=== PATIENT | male | born 1960 | race Caucasian/White ===

== ENCOUNTER → 2016-07-29 | Outpatient (CLI) | payer OTHER ==
[2016-07-29 17:34] LABS: HEMOGLOBIN A1C 7.73 % (4.2-6.0)
== END ==
LOC: MOB LAB 16:14
DX: E11.9 Type 2 diabetes mellitus without complications (principal)
CPT/HCPCS: 36415; 83036

== ENCOUNTER → 2016-10-01 | Outpatient (CLI) | payer OTHER | LOC: MOB LAB 10:11 | PROVIDERS: ATTEND Physician Assistant | DX: N39.0 Urinary tract infection, site not specified (principal) | CPT/HCPCS: 87088; 87185; 87205 ==

== ENCOUNTER 2018-09-05 14:23 | Inpatient (IN) ==
[2018-09-05] MEDS ORDERED: Sodium Chloride 0.9% 1,000 ML PRIMARY IV ONE (14:39)
[2018-09-05] MEDS ORDERED: ASPIRIN 81 MG (BABY) CHEWABLE TABLET PO ONE (14:39)
--- NOTE | 2018-09-05 14:40 | EKG ---
[address] [address] Measurements Intervals [place] Rate: 71 P: 76 MN: 166 QRS: 189 QRSD: 112 T: 55 QT: 410 QTc: 432 Interpretive Statements SINUS RHYTHM INDETERMINATE AXIS MODERATE INTRAVENTRICULAR CONDUCTION DELAY ] Compared to ECG 01/18/2013 15:25:46 Indeterminate axis now present Intraventricular conduction delay now present Sinus bradycardia no longer present Electronically Signed On 09-06-18 10:17:02 MDT by Yared Conway [email or web address]
[2018-09-05 14:53] LABS: BASOPHILS # (AUTO) 0.05 10*3/UL; BASOPHILS % (AUTO) 0.7 % (0-1); EOSINOPHILS # (AUTO) 0.46 10*3/UL; EOSINOPHILS % (AUTO) 6.3 % (0-8); Hemoglobin [HGB] 15.5 g/dL (14.0-18.0); MEAN CORPUSCULAR HGB CONC 33.7 g/dL (33-37); MEAN PLATELET VOLUME 10.1 FL (7.4-12.2); MONOCYTES # (AUTO) 0.59 10*3/UL (0.3-0.8); NEUTROPHILS # (AUTO) 4.55 10*3/UL; NEUTROPHILS % (AUTO) 61.8 % (50-80); RED BLOOD COUNT 5.35 10^6/uL (4.70-6.10)
[2018-09-05 14:54] LABS: PLATELET MORPHOLOGY COMMENT NORMAL MORPHOLOGY (NORM); RBC MORPHOLOGY COMMENT NORMAL MORPHOLOGY (NORM); WBC MORPHOLOGY COMMENT NORMAL MORPHOLOGY (NORM)
[2018-09-05 15:00] LABS: BLOOD UREA NITROGEN 16 mg/dL (7-22); SERUM ALBUMIN 3.9 g/dL (3.5-4.8)
--- NOTE | 2018-09-05 15:43 | DI ---
AP CHEST X-RAY, 09/05/2018 2:39 PM : Clinical History: Chest pain. Previous Exam: 01/18/2013; 11/15/2013; and 09/02/2014. Soft Tissues: No acute soft tissue abnormality. Bones: Normal. Heart: Heart size is at the upper limits of normal. There is no CHF. Lungs: No infiltrates. Effusion(s): None. Mediastinum: There is pulmonary arterial hypertension and the pulmonary arteries have become progress ively larger over the serial exams. The pulmonary artery branches are becoming more tortuous and segm ented, and this is associated with chronic bronchitis. Nodules: No pulmonary nodules. Readin. No acute infiltrate or effusion. 2. Heart size is at the upper limits of normal without definite CHF. 3. Progressive worsening of pulmonary arterial hypertension over the serial exams. This patient may have underlying chronic bronchitis.
--- NOTE | 2018-09-05 18:02 | DI ---
CT ANGIOGRAM OF THE CHEST, 09/05/2018 4:23 PM : Clinical History: Chest pain. Elevated D-dimer test. Previous Exam: None at this facility. Technique: Scans from base of neck to lung bases with IV contrast. Bolus tracking protocol was used f or timing the injection. Non-MIPS and MIPS sagittal/coronal images generated. IV Contrast: 65 mL of Ultravist 370. Base of Neck: Normal. Nodes: Normal axillary, supraclavicular, mediastinal, and hilar lymph nodes. Heart: Normal. Calcifications are present at the origins of the right coronary artery and the left ma instem. Reflux of contrast occurs in the inferior vena cava indicating mild tricuspid insufficiency. Aorta: Normal thoracic aorta. No aneurysm or dissection. Pulmonary Arteries: There are pulmonary emboli present bilaterally with the largest clots involving t he right lower lobe branches. Clots are also visible in branches to the right middle lobe and right u pper lobe as well as the left upper lobe, lingula, and left lower lobe. There is pulmonary arterial h ypertension with retrograde filling of the azygos and hemiazygos veins indicating elevated right hear t pressures. Lungs: No infiltrates. No pulmonary infarcts. Effusion(s): None. Nodules: None. Bony Structures: Normal visualized portions of ribs, sternum, scapulae, clavicles, and shoulders. Nor mal visualized portions of thoracic spine. Limited Upper Abdomen: Normal adrenal glands and spleen. Normal limited views of liver and pancreas. READIN. Pulmonary embolization involving all lobes of both lungs but most prominently in the right lower lobe. There is pulmonary arterial hypertension. No infiltrates or effusions Indicate pulmonary infarc ts. 2. Mild tricuspid insufficiency. Reflux of contrast into the azygos and hemiazygos veins indicating elevated right heart pressures. 3. Coronary artery disease with calcifications at the origins of the left mainstem and right coronar y artery.
[2018-09-05] MEDS ORDERED: Apixaban 5 MG TABLET PO ONE (18:06)
--- NOTE | 2018-09-05 21:06 | PDOC ---
HPI - History of Present Illness History of Present Illness: This very nice 58-year-old gentleman with history of diabetes he states that about 3 weeks ago started having chest pain this was acute in nature like an elephant was sitting on his chest where he had to stop after well except felt better and continue on with his normal day he did not seek medical treatment at that time comes back to the ER today for the same, the symptoms he is stable now does not have any chest pain or pain on deep inspiration. 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 he has not traveled in planes or long car rides and he doesn't know of any family members that have blood clots Past Medical History Medical History: Diabetes Tobacco Use: Former Smoker In the Past 12 Months, Have Used or Abuse Any of the Following Substance: None Medication / Allergies Home Medications: Home Medications Medication Instructions Recorded Confirmed Ibuprofen [Advil] 200 mg PO Q6H PRN PRN 09/16/11 09/05/18 Blood Sugar Diagnostic [Freestyle 1 strip MC BID #50 strip 02/27/13 09/05/18 Lite Test Strips] Cetirizine HCl [Zyrtec] 10 mg PO DAILY 05/12/17 09/05/18 blood sugar diagnostic strips See Dose Instructions .ROUTE 11/16/17 04/06/18 .MEDSUPPLY #100 ea geriatric multivit with iron and 1 tab PO QDAY 12/13/17 09/05/18 minerals tablet fluticasone furoate 200 1 inh INH QDAY #60 ea 05/07/18 09/05/18 mcg-vilanterol 25 mcg/dose inhalation powder glipizide 10 mg tablet 10 mg PO BID #60 tab 06/06/18 09/05/18 metformin 1,000 mg tablet 1,000 mg PO BID #60 tab 06/25/18 09/05/18 albuterol sulfate HFA 90 1 puff INH Q4-6H PRN #8.5 g 07/13/18 09/05/18 mcg/actuation aerosol inhaler sitagliptin 50 mg tablet 50 mg PO QDAY #30 tab 07/19/18 09/05/18 Atorvastatin Calcium [Lipitor] 20 mg PO BEDTIME 09/05/18 09/05/18 Lisinopril 5 mg PO BEDTIME 09/05/18 09/05/18 Allergies/Adverse Reactions: Allergies Allergy/AdvReac Type Severity Reaction Status Date / Time almond Allergy Severe Anaphylaxis Verified 09/05/18 18:55 EGGS Allergy Severe DIFFICULTY Uncoded 09/05/18 18:55 SWALLOWING Review of Systems - Review of Systems All Systems: Reviewed & No Additional Complaints Except as Stated - Respiratory Respiratory: DENIES: Negative System Review, Cough, Sputum, Dyspnea At Rest, Dyspnea with Exertion, Pleuritic Pain, Hemoptysis, Wheezing, Other, See HPI - Cardiovascular Cardiovascular: REPORTS: Chest Pain - Gastrointestinal Gastrointestinal / Abdominal: DENIES: Negative System Review, Nausea, Vomiting, Diarrhea, Constipation, Abdominal Pain, Bloody Stool, Poor Appetite, Heartburn, Regurgitation, Bloating, Lactose Intolerance, Melena, Bright Red Blood per Rectum, Other, See HPI - Genitourinary Genitourinary: DENIES: Negative System Review, Pain, Burning, Hematuria, Incontinence, Urgency, Hesitant Stream, Decreased Stream, Nocutria, Discharge, Sexual Dysfunction, Other, See HPI Exam - Vitals Vital Signs: Vital Signs Temperature 95.6 F Temperature Source Temporal Artery Scan Pulse Rate [Bilateral Dorsalis 82 Pedis] Pulse Rate [Apical] 80 Pulse Rate [Pulse Oximeter 83 Right] Pulse Rate 47 Respiratory Rate 20 Blood Pressure [Right Arm] 149/94 Blood Pressure 126/84 Pulse Ox 99 Oxygen Flow Rate 2 Oxygen Delivery Method Nasal Cannula Height 6 ft Weight 240 lb 8 oz - General General Appearance: No Acute Distress, Cooperative - Head Head Exam: Normal Inspection, Normocephalic, Atraumatic - Eye Eye Exam: POSITIVE: Normal Appearance, PERRL, EOMI, No Scleral Icterus - Respiratory Respiratory Exam: POSITIVE: Clear to Auscultation - Bilaterally, Breathing Non Labored, Normal To Percussion, Normal to Percussion and Palpation - Cardiovascular Cardiovascular Exam: POSITIVE: RRR, No Murmur, No Clicks, No Gallops, No Rubs, PMI Non-Displaced - GI/Abdominal GI/Abdominal Exam: POSITIVE: Normal Bowel Sounds, Non Tender, Non Distended, Soft, No Masses, No Hepatomegaly, No Splenomegaly, No Organomegaly - Extremities Extremities Exam: POSITIVE: No Clubbing Present, No Edema Present, No Cyanosis Present Results - Labs CBC and BMP: 09/05/18 14:42 09/05/18 14:42 Assessment and Plan - Patient Problems (1) Pulmonary embolism Current Visit: Yes Status: Acute Comment: Multifocal PE in no lobes, pulmonary hypertension and some right heart strain his vitals are stable he does not have hypotension he does have elevated LFTs but no positive troponins. We will put him on a heparin drip hopefully we can get an echo on Monday repeat labs tomorrow including troponin depending on what these values show and how vitals are further determination and medical decision will be made I've explained everything in very specific details to the family and daughter and nurse and at the bedside he will need a hematology consult as an outpatient Code(s): I26.99 - Other pulmonary embolism without acute cor pulmonale (2) Diabetes Current Visit: No Status: Chronic Comment: Check sugars before meals and at bedtime continue by mouth meds Code(s): E11.9 - Type 2 diabetes mellitus without complications Qualifiers:
--- NOTE | 2018-09-06 01:08 | PDOC ---
Chest Pain HPI - General Chief Complaint: Chest Pain Stated Complaint: CHEST PAIN Date Seen by Provider: 09/05/18 Time Seen by Provider: 15:00 Source: Patient, Spouse Exam Limitations: POSITIVE: No limitations Treatment Prior to Arrival: REPORTS: None Nurse's Notes Reviewed & Considered: Yes - History of Present Illness Initial Comments: The patient is a 58-year-old male. He states that 2 days ago he began to develop some intermittent episodes of chest pain and pressure "like an elephant sitting on my chest". He states he's had similar episodes 2-3 weeks ago. He states his father had heart problems. The patient himself has no known cardiopulmonary problems. She of diabetes for which he takes metformin and glipizide. He is also on lisinopril. Onset of his pain yesterday was while he was working on a lawn sprinkler. He states his symptoms occur with activity and or relieved by rest. Upon presentation to the emergency room he states he feels "okay". His last episode of chest pain occurred about 20 minutes [employer] and states he's had about 6 episodes of chest pain today. No radiation of pain. Patient has not smoked since 1994. Body Location Affected: REPORTS: Chest Timing: REPORTS: Intermittent Duration: >24 hours Severity: Moderate Gone now, lasted (minutes):: 20 Intermittent Episodes Lasting (minutes): 20 Context: REPORTS: Activity Quality: REPORTS: Pressure Radiation: REPORTS: None Associated Symptoms: DENIES: Nausea, Vomiting, Diaphoresis, Shortness of Breath, Hurts to Breathe, Palpitations, Productive Cough (blood), Productive Cough (sputum), Weakness, Dizziness Modifying Factors: improves with: None Reported Similar Symptoms Previously: No Recently seen/treated/hospitalized: No Any Prior Injuries Related to Current Complaint?: No - Patient Home Medications Home Medications: Home Medications Ibuprofen [Advil] 200 mg PO Q6H PRN PRN 09/16/11 Blood Sugar Diagnostic [Freestyle Lite Test Strips] 1 strip MC BID #50 strip 02/27/13 Cetirizine HCl [Zyrtec] 10 mg PO DAILY 05/12/17 blood sugar diagnostic strips See Dose Instructions .ROUTE .MEDSUPPLY #100 ea 11/16/17 geriatric multivit with iron and minerals tablet 1 tab PO QDAY 12/13/17 fluticasone furoate 200 mcg-vilanterol 25 mcg/dose inhalation powder 1 inh INH QDAY #60 ea 05/07/18 glipizide 10 mg tablet 10 mg PO BID #60 tab 06/06/18 metformin 1,000 mg tablet 1,000 mg PO BID #60 tab 06/25/18 albuterol sulfate HFA 90 mcg/actuation aerosol inhaler 1 puff INH Q4-6H PRN #8.5 g 07/13/18 sitagliptin 50 mg tablet 50 mg PO QDAY #30 tab 07/19/18 Atorvastatin Calcium [Lipitor] 20 mg PO BEDTIME 09/05/18 Lisinopril 5 mg PO BEDTIME 09/05/18 - Patient Allergies Allergies/Adverse Reactions: Allergies Allergy/AdvReac Type Severity Reaction Status Date / Time almond Allergy Severe Anaphylaxis Verified 09/05/18 18:55 EGGS Allergy Severe DIFFICULTY Uncoded 09/05/18 18:55 SWALLOWING Past Medical History - heen HEENT History: Tinnitis, Other (please comment) Additional HEENT History: MULTIPLE TEETH MISSING Cardiovascular History: Hypertension, Hyperlipidemia Respiratory History: Asthma Gastrointestinal History: GERD Genitourinary History: Denies History Endocrine History: Type 2 Diabetes (diet), Type 2 Diabetes (oral) Additional Endocrine History: STATES " I DONT BELIEVE IT" Musculoskeletal History: Back Pain, Other (please comment) Additional Musculoskeletal History: COMPRESSION FRACTURE BACK Neurological History: Denies History Blood Disorders: Denies History Psychiatric History: Denies History Cancer History: Denies History In Past Year Been Physically Harmed or Verbally Threatened: No History of MDRO: No Tobacco Use: Former Smoker Alcohol Use: Rarely In the Past 12 Months, Have Used or Abuse Any Substance: None Previous Surgical History: Yes Type / Date of Surgery: LT KNEE SCOPE. LT FOOT X 5. CYST LEFT SCAPULA REMOVED. ORAL SURGERY Significant Family History: No pertinent family hx Past Medical History Reviewed: Reviewed - No Changes ROS - Limitations ROS Limitations: No Limitations Constitution: REPORTS: Denies Symptoms Cardiovascular: REPORTS: Chest Pain Respiratory: REPORTS: Denies Resp Symptoms Neurological: REPORTS: Denies Neuro Symptoms Gastrointestinal: REPORTS: Denies GI Symptoms Endocrine: REPORTS: Denies Symptoms Musculoskeletal: REPORTS: Denies MS Symptoms Genitourinary: REPORTS: Denies Symptoms Eyes: REPORTS: Denies Symptoms ENT: REPORTS: Denies Symptoms Skin: REPORTS: Denies Skin Symptoms Lympathic: REPORTS: Denies Lympathic Symptoms Immunologic: POSITIVE: Denies Symptoms Psychiatric: POSITIVE: Denies Psych Symptoms Chest Pain PE - General Appearance General Appearance: REPORTS: Alert, Cooperative, No Acute Distress, No Evidence of Trauma - HEENT HEENT: POSITIVE: Head Inspection Nml, Eyes Inspection Nml, Ears Inspection Nml, Nose Inspection Nml, Oral/Dental Inspect. Nml, Pharynx Inspect. Nml, PERRL, EOMI - Neck Neck: REPORTS: Normal Inspection, No Carotid Bruit - Respiratory Respiratory: REPORTS: No Respiratory Distress, Breath Sounds Normal, Chest Non- Tender - Cardiovascular Cardiovascular: REPORTS: Regular Rate and Rhythm, Heart Sounds Normal, Equal Pulses, Strong Pulses, No Murmur, No Gallop, No Friction Rub, No JVD Peripheral Pulses: Radial (R): 2+, Radial (L): 2+ - Abdomen Abdomen: Soft: (All Quadrants), Normal Bowel Sounds: (All Quadrants), Denies Tenderness: (All Quadrants), No Splenomegaly: (All Quadrants), No Hepatomegaly: (All Quadrants), No Guarding: (All Quadrants), No Rebound: (All Quadrants), No Palpable Pulse: (All Quadrants), No Palpabale Mass: (All Quadrants), No Distention: (All Quadrants), No Rigidity: (All Quadrants) - Skin Skin: REPORTS: Intact, Normal For Race, Warm, Dry, No Rash - Extremities Extremity: Non-Tender: (All Extremities), Normal ROM: (All Extremities), Normal Inspection: (All Extremities) - Neurological / Psychological Neurological: POSITIVE: Affect Apporpriate, Oriented X3, parquetry layer Normal As Tested, Motor Normal, Sensation Normal Images - Complete Complete: 1 - Area of described discomfort Chest Pain Progress - Results Reviewed by me Xrays/CTs/US Reviewed by me: Yes Discussed with Radiologist: Yes Radiology Findings: CTA chest shows "pulmonary embolization involving all lobes of both lungs but most prominently in the right lower lobe. There is pulmonary arterial hypertension. No infiltrates or effusions" chest x-ray compatible with pulmonary hypertension. Lab Results Reviewed by Me: Yes (d-dimer [id number]) CBC and BMP: 09/05/18 14:42 09/05/18 14:42 Lab Results:: Laboratory Results 09/05/18 09/05/18 09/05/18 14:42 14:42 14:42 WBC 7.36 RBC 5.35 Hgb 15.5 Hct 46.0 MCV 86.0 MCH 29.0 MCHC 33.7 RDW Std Deviation 44.7 RDW Coeff of Deacon 14.7 H Plt Count 143 MPV 10.1 Immature Gran % (Auto) 0.1 Neut % (Auto) 61.8 Lymph % (Auto) 23.1 [place] % (Auto) 8.0 Eos % (Auto) 6.3 Baso % (Auto) 0.7 Immature Gran # (Auto) 0.01 Neut # (Auto) 4.55 Lymph # (Auto) 1.70 [place] # (Auto) 0.59 Eos # (Auto) 0.46 Baso # (Auto) 0.05 WBC Morphology Comment Normal morphology Plt Morphology Comment Normal morphology RBC Morph Comment Normal morphology PT INR APTT D-Dimer 6362 H Sodium 141 Potassium 4.7 Chloride 103 Carbon Dioxide 27 Anion Gap 11 BUN 16 Creatinine 0.8 Estimated GFR > 60 BUN/Creatinine Ratio 20.00 Glucose 203 H Calculated Osmolality 298.0 H Calcium 9.4 Total Bilirubin 0.5 AST 169 H ALT 259 H Alkaline Phosphatase 85 CK-MB (CK-2) Troponin I Total Protein 6.6 Albumin 3.9 Globulin 2.7 Albumin/Globulin Ratio 1.40 09/05/18 09/05/18 14:42 18:03 WBC RBC Hgb Hct MCV MCH MCHC RDW Std Deviation RDW Coeff of Deacon Plt Count MPV Immature Gran % (Auto) Neut % (Auto) Lymph % (Auto) [place] % (Auto) Eos % (Auto) Baso % (Auto) Immature Gran # (Auto) Neut # (Auto) Lymph # (Auto) [place] # (Auto) Eos # (Auto) Baso # (Auto) WBC Morphology Comment Plt Morphology Comment RBC Morph Comment PT 12.2 INR 1.06 APTT 30.8 D-Dimer Sodium Potassium Chloride Carbon Dioxide Anion Gap BUN Creatinine Estimated GFR BUN/Creatinine Ratio Glucose Calculated Osmolality Calcium Total Bilirubin AST ALT Alkaline Phosphatase CK-MB (CK-2) 1.28 Troponin I 0.020 Total Protein Albumin Globulin Albumin/Globulin Ratio EKG Interpreted/Reviewed By Me:: Yes (normal) EKG Interpretation:: POSITIVE: Normal Sinus Rhythm, Normal Rate, Normal Intervals, Normal [place], Normal QRS, Normal ST/T - Patient's Progress Pain Medication Addressed: POSITIVE: Not Applicable School/Work Release Addressed: POSITIVE: Not Applicable Re-Examine Time: 18:05 Re-Examine Comment: Patient maintained normal oxygen saturations in the emergency room. Patient given 10 mg of Eliquis by mouth. Case discussed with Dr. Llanos, hospitalist, who has admitted the patient for further evaluation and treatment. Status: POSITIVE: Improved, Re-Examined Quality Measure Initiative: CP/AMI: POSITIVE: EKG, ASA - Consult Consult (If Yes, Name of Consulting MD & Time Called): Yes (Dr. Llanos, hospitalist [id number],) Consulting MD will see pt:: POSITIVE[place] [facility] [place] Counseled: POSITIVE: Patient, Family, RE: Lab Results, RE: Radiology Results, RE: DX, RE: Need for F/U Patient Care Time - Estimated PCT Patient Care Time (In Minutes): 60 Vital Signs - Recent Vital Signs Vital Signs: Blood pressure 149/94, heart rate 83, respiratory rate 22, temperature 90.5F, oxygen saturation on room air 89%. - VS Reviewed Vital Signs Reviewed: Yes Discharge Clinical Impression: Chest pain, Pulmonary emboli Discharge Disposition: Admit to Inpatient Condition: Fair Patient Problem(s) Reviewed: Yes Date Decision to Admit to Inpatient: 09/05/18 Time Decision to Admit to Inpatient: 18:05
[2018-09-06 04:52] LABS: BASOPHILS # (AUTO) 0.03 10*3/UL; BASOPHILS % (AUTO) 0.5 % (0-1); EOSINOPHILS # (AUTO) 0.54 10*3/UL; EOSINOPHILS % (AUTO) 8.2 % (0-8); Hematocrit [HCT] 42.7 % (42.0-52.0); Hemoglobin [HGB] 13.7 g/dL (14.0-18.0); LYMPHOCYTES # (AUTO) 2.12 10*3/uL; MEAN CORPUSCULAR HGB CONC 32.1 g/dL (33-37); MEAN CORPUSCULAR VOLUME 87.1 FL (80-90); MEAN PLATELET VOLUME 10.8 FL (7.4-12.2); MONOCYTES # (AUTO) 0.55 10*3/UL (0.3-0.8); MONOCYTES % (AUTO) 8.4 % (5-15); NEUTROPHILS # (AUTO) 3.32 10*3/UL; NEUTROPHILS % (AUTO) 50.4 % (50-80)
[2018-09-06 05:00] LABS: PLATELET MORPHOLOGY COMMENT NORMAL MORPHOLOGY (NORM); RBC MORPHOLOGY COMMENT NORMAL MORPHOLOGY (NORM); WBC MORPHOLOGY COMMENT NORMAL MORPHOLOGY (NORM)
[2018-09-06 05:09] LABS: BLOOD UREA NITROGEN 20 mg/dL (7-22); SERUM ALBUMIN 3.2 g/dL (3.5-4.8)
[2018-09-06] MEDS ORDERED: Sodium Chloride 0.9% 1,000 ML PRIMARY IV ONE (06:44)
[2018-09-06] MEDS: Heparin Drip 25,000 UNIT/500 ML BAG IV SCH (06:54)
[2018-09-06] MEDS ORDERED: metFORMIN 500 MG TABLET PO SCH (07:00)
[2018-09-06] MEDS: GlipiZIDE Tab 5 MG TABLET PO SCH ×2 (07:25→16:39)
[2018-09-06] MEDS ORDERED: sitaGLIPtin Tab 100 MG TAB PO SCH (09:00)
[2018-09-06] MEDS: FLUTICASONE INH SCH (09:28)
[2018-09-06] MEDS: VILANTEROL INH SCH (09:28)
--- NOTE | 2018-09-06 13:25 | DI ---
VENOUS DOPPLER ULTRASOUND OF BOTH LOWER EXTREMITIES, 09/06/2018 7:00 AM: Clinical History: Multifocal pulmonary embolism. Previous Exam: None. Technique: 2D real-time imaging and color Doppler ultrasound with compression and augmentation maneuv ers. Deep Venous System: Scans of the right leg from the groin to Tin's canal are normal. Clot is prese nt the popliteal vein and the posterior tibial veins. Normal deep venous system from groin to poplite al fossa in the left leg. Superficial Venous System: Normal greater saphenous vein bilaterally. Additional Findings: Edema is present in the subcutaneous fat of the right lower leg. Readin. Deep vein thrombosis involving the right popliteal vein. Clot is also present in branches of the right posterior tibial veins. 2. Negative venous Doppler ultrasound of the left lower extremity.
--- NOTE | 2018-09-06 16:14 | PDOC(PROG) ---
Date of Service: 09/06/18 Time of Service: 12:00 Interval History: Subjective Patient came into the hospital because of history of chest pain, the chest pain been going on for about 3 weeks exertional, he described as pressure there was no radiation elsewhere, with shortness of breath. He Said sometimes he is been wearing his oxygen. He is denying symptoms today. Although he said he didn't walk much apart from going to the bathroom , he didn't feel short of breath and had no pain and no dizziness. Objective : Data - Labs CBC and BMP: 09/06/18 03:55 09/06/18 03:55 Objective : Exam - General General Appearance: No Acute Distress, Cooperative, Obese - Head Head Exam: Normal Inspection - Eye Eye Exam: Normal Appearance - ENT ENT Exam: Normal Exam - Neck Neck Exam: Normal Inspection - Respiratory Respiratory Exam: Clear to Auscultation - Bilaterally - Cardiovascular Cardiovascular Exam: RRR - GI/Abdominal GI/Abdominal Exam: Normal Bowel Sounds, Non Tender, Non Distended, Soft, No Org anomegaly - Rectal Rectal Exam: Deferred - External Exam: Deferred - Extremities Extremities Exam: Normal Inspection - Back Back Exam: Normal Inspection - Neurological Neurological Exam: Alert, Oriented x 3, CN II-XII Intact, No Facial Droop, Speech Intact / Clear, Moves All Extremities Equally - Psychiatric Psychiatric Exam: Normal Affect - Integumentary Integumentary Exam: Normal Color Assessment and Plan - Patient Problems (1) Pulmonary embolism Current Visit: Yes Status: Acute Comment: He was started on heparin for his PE. Ultrasound did show DVT. I did check his BNP was elevated. I did speak with library circulation assistant at the [facility] Dr. Castle and he agreed with the current management. Treatment is anticoagulation. He Doesn't think that is a need for IVC filter or other intervention or thrombolytic. Even echocardiogram can be done as an outpatient. I think will give him 24 hours of heparin and switch probably tomorrow to eliquis Code(s): I26.99 - Other pulmonary embolism without acute cor pulmonale (2) Diabetes Current Visit: No Status: Chronic Comment: Same medication but will hold the metformin. Code(s): E11.9 - Type 2 diabetes mellitus without complications Qualifiers:
[2018-09-06] MEDS: sitaGLIPtin Tab 100 MG TAB PO SCH (20:31)
[2018-09-06] MEDS: ATORVASTATIN 20 MG TABLET PO SCH (20:31)
[2018-09-06] MEDS ORDERED: LISINOPRIL 5 MG TABLET PO SCH (21:00)
[2018-09-06] MEDS ORDERED: ACETAMINOPHEN 325 MG TABLET PO PRN (21:05)
[2018-09-07] MEDS: Heparin Drip 25,000 UNIT/500 ML BAG IV SCH ×2 (00:36→21:47)
[2018-09-07 04:54] LABS: BASOPHILS # (AUTO) 0.03 10*3/UL; BASOPHILS % (AUTO) 0.4 % (0-1); EOSINOPHILS # (AUTO) 0.49 10*3/UL; Hematocrit [HCT] 42.6 % (42.0-52.0); Hemoglobin [HGB] 13.7 g/dL (14.0-18.0); LYMPHOCYTES # (AUTO) 1.75 10*3/uL; MEAN CORPUSCULAR HEMOGLOBIN 28.1 PG (27-31); MEAN CORPUSCULAR HGB CONC 32.2 g/dL (33-37); MEAN CORPUSCULAR VOLUME 87.3 FL (80-90); MEAN PLATELET VOLUME 10.4 FL (7.4-12.2); MONOCYTES # (AUTO) 0.44 10*3/UL (0.3-0.8); MONOCYTES % (AUTO) 6.3 % (5-15); NEUTROPHILS # (AUTO) 4.32 10*3/UL; NEUTROPHILS % (AUTO) 61.3 % (50-80); RED BLOOD COUNT 4.88 10^6/uL (4.70-6.10)
[2018-09-07 05:11] LABS: PLATELET MORPHOLOGY COMMENT NORMAL MORPHOLOGY (NORM); RBC MORPHOLOGY COMMENT NORMAL MORPHOLOGY (NORM); WBC MORPHOLOGY COMMENT NORMAL MORPHOLOGY (NORM)
[2018-09-07 05:20] LABS: BLOOD UREA NITROGEN 13 mg/dL (7-22); BUN/CREATININE RATIO 18.57 (6-20); SERUM ALBUMIN 3.4 g/dL (3.5-4.8)
[2018-09-07] MEDS ORDERED: Sodium Chloride 0.9% 1,000 ML PRIMARY IV SCH (07:30)
[2018-09-07] MEDS ORDERED: Sodium Chloride 0.9% 1,000 ML PRIMARY IV ONE (07:30)
[2018-09-07] MEDS: GlipiZIDE Tab 5 MG TABLET PO SCH ×2 (07:33→16:48)
[2018-09-07] MEDS: FLUTICASONE INH SCH (11:06)
[2018-09-07] MEDS: VILANTEROL INH SCH (11:06)
--- NOTE | 2018-09-07 11:50 | PDOC(PROG) ---
Date of Service: 09/07/18 Time of Service: 10:45 Interval History: Subjective Patient denying symptoms was laying in bed. However he did say that his symptoms are more exertional and on going to the bathroom he doesn't have any pain or shortness of breath. He did say though it's usually on longer distance walking he would feel symptoms. Objective : Data - Labs CBC and BMP: 09/07/18 04:05 09/07/18 04:05 Objective : Exam - General General Appearance: No Acute Distress, Cooperative - Head Head Exam: Normal Inspection - Eye Eye Exam: Normal Appearance - ENT ENT Exam: Normal Exam - Neck Neck Exam: Normal Inspection - Respiratory Respiratory Exam: Clear to Auscultation - Bilaterally - Cardiovascular Cardiovascular Exam: RRR - GI/Abdominal GI/Abdominal Exam: Normal Bowel Sounds, Non Tender, Non Distended, Soft, No Organomegaly - Rectal Rectal Exam: Deferred - External Exam: Deferred - Extremities Additional Extremities Exam Details: Mild swelling in the right leg compared to the left. Minimal edema present. - Back Back Exam: Normal Inspection - Neurological Neurological Exam: Alert, Oriented x 3, CN II-XII Intact - Psychiatric Psychiatric Exam: Normal Affect - Integumentary Integumentary Exam: Normal Color Assessment and Plan - Patient Problems (1) Pulmonary embolism Current Visit: Yes Status: Acute Comment: Continue IV heparin I think for another day and think about switching him to pills tomorrow. An echocardiogram is scheduled for today. As I said in my note yesterday I did speak with the fusing machine feeder at [facility] and he agrees with the current plan. No need for intervention or thrombolytics. No need for IVC filter. He did say though that he need to have the repeat echocardiogram in 3 months to look at his pressure again. Code(s): I26.99 - Other pulmonary embolism without acute cor pulmonale (2) Diabetes Current Visit: No Status: Chronic Comment: Same medication, I think we can restart his metformin tomorrow. Code(s): E11.9 - Type 2 diabetes mellitus without complications Qualifiers:
[2018-09-07] MEDS: sitaGLIPtin Tab 100 MG TAB PO SCH (21:11)
[2018-09-07] MEDS: ATORVASTATIN 20 MG TABLET PO SCH (21:11)
[2018-09-08] MEDS ORDERED: Sodium Chloride 0.9% 1,000 ML PRIMARY IV ONE (07:19)
[2018-09-08] MEDS: GlipiZIDE Tab 5 MG TABLET PO SCH ×2 (07:21→16:36)
--- NOTE | 2018-09-08 09:27 | PDOC(PROG) ---
Date of Service: 09/08/18 Time of Service: 09:30 Interval History: Subjective Patient is denying symptoms. He did walk around 3 laps around the nurses station he said he didn't have the chest pain that brought him here. No significant shortness of breath with it. Objective : Data - Labs CBC and BMP: 09/07/18 04:05 09/07/18 04:05 Objective : Exam - General General Appearance: No Acute Distress, Cooperative, Obese - Head Head Exam: Normal Inspection - Eye Eye Exam: Normal Appearance - ENT ENT Exam: Normal Exam - Neck Neck Exam: Normal Inspection - Respiratory Respiratory Exam: Clear to Auscultation - Bilaterally - Cardiovascular Cardiovascular Exam: RRR - GI/Abdominal GI/Abdominal Exam: Normal Bowel Sounds, Non Tender, Non Distended, Soft, No Organomegaly - Rectal Rectal Exam: Deferred - External Exam: Deferred - Extremities Additional Extremities Exam Details: Slight edema in the right leg. - Back Back Exam: Normal Inspection - Neurological Neurological Exam: Alert, Oriented x 3, CN II-XII Intact, No Facial Droop, Speech Intact / Clear, Moves All Extremities Equally - Psychiatric Psychiatric Exam: Normal Affect - Integumentary Integumentary Exam: Normal Color Assessment and Plan - Patient Problems (1) Pulmonary embolism Current Visit: Yes Status: Acute Comment: He did walk around did do well with no symptoms. I think will switch from heparin to eliquis will keep him another night in the hospital if things remain stable consider home tomorrow. Code(s): I26.99 - Other pulmonary embolism without acute cor pulmonale (2) Diabetes Current Visit: No Status: Chronic Comment: Same medication Code(s): E11.9 - Type 2 diabetes mellitus without complications Qualifiers: (3) DVT (deep venous thrombosis) Current Visit: Yes Status: Acute Comment: He is on anticoagulation. And I did speak with the case worker to at [facility] does not think that there is an indication for an IVC filter. Code(s): I82.409 - Acute embolism and thrombosis of unspecified deep veins of unspecified lower extremity
[2018-09-08] MEDS: metFORMIN ER 500 MG TABLET PO SCH ×2 (09:45→17:30)
[2018-09-08] MEDS: FLUTICASONE INH SCH (10:54)
[2018-09-08] MEDS: VILANTEROL INH SCH (10:54)
[2018-09-08] MEDS: Apixaban 5 MG TABLET PO SCH ×2 (10:55→20:26)
[2018-09-08] MEDS: ATORVASTATIN 20 MG TABLET PO SCH (20:25)
[2018-09-08] MEDS: sitaGLIPtin Tab 100 MG TAB PO SCH (20:25)
[2018-09-09 05:22] VITALS: RESP 16
[2018-09-09] MEDS: metFORMIN ER 500 MG TABLET PO SCH (07:09)
[2018-09-09] MEDS: GlipiZIDE Tab 5 MG TABLET PO SCH (07:09)
[2018-09-09 07:41] VITALS: BP 129/58; TEMP 97.9
--- NOTE | 2018-09-09 08:45 | DCSUMMARY ---
Hospitalization Summary Admit Date: 09/05/2018 Discharge Date: 09/09/18 Hospital Course: Discharge diagnoses 1. Bilateral pulmonary embolism involving all lobes of both lungs but most prominently in the right lower lobe 2. Deep vein thrombosis involving the right popliteal vein. Clot is also present in branches of the right posterior tibial veins. 3. Severe pulmonary hypertension likely secondary to the embolism, will need repeat echocardiogram in 3 months 4. 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 History of diabetes 6. History of asthma 7. Coronary artery disease with calcifications at the origins of the left mainstem and right coronary artery will need follow-up. Hospital course This is a 58 years old male with medical history significant for history of diabetes, asthma who presented to the hospital with history of chest pain exertional which is being going on for about 3 weeks, he came into the ER on the fifth with the same symptoms evaluation revealed elevated d-dimer, CTA of the chest showed bilateral pulmonary embolism involving all lobes of both lungs but most prominently in the right lower lobe so he was admitted to the hospital. In the ER initially he received eliquis then it was switched to IV heparin. He was admitted to the hospital by Dr. Llanos please see his note. I saw him the next day we continued with the same treatment on IV heparin, he had an ultrasound of his leg which showed DVT involving the right popliteal vein and also a clot present in branches of the right posterior tibial vein. He needed to be on oxygen about 2-3 L. He was never hypotensive he was not tachycardiac. I did speak with the fresh meat grader at [facility] just because of the clot burden and the presence of the DVT there is no role of thrombolytics, there is no role for IVC filter. We kept him on the IV heparin then switched him to eliquis. He did have an echocardiogram done I spoke with the medicine technologist and the unofficial report it did show severe pulmonary hypertension, right ventricle is dilated and systolic function is reduced of the right ventricle. I did speak with the fresh meat grader again Sherman Fernandez at [facility], and his opinion this is a expected and he recommended repeat echocardiogram in 3 months. On the day of discharge he did walk around did not have symptoms vital signs remained stable. He did though need to be on oxygen 2-3 L we thought he could be discharged home follow-up with his primary. We did do a blood test for prothrombin gene and actor [place] mutation and they're unavailable at the time of dictation. In terms of follow-up the patient said that he'll follow-up with his primary then decide whom he will follow-up after that in terms of specialists. CT of the chest did show calcification at the origin of the left mainstem coronary artery this need to be followed up later on as an outpatient. In terms of duration of treatment he may need to be on lifelong treatment because of the clot burden. We could not do further testing in terms of thrombophilia profile because he was on IV heparin and that would interfere with the results. Discharge instruction Diet regular Activity as tolerated Medications Current Medication(s) Medication Instructions Recorded Confirmed Type Blood Sugar Diagnostic [Freestyle 1 strip MC BID #50 strip 02/27/13 09/05/18 History Lite Test Strips] Cetirizine HCl [Zyrtec] 10 mg PO DAILY 05/12/17 09/05/18 History blood sugar diagnostic strips See Dose Instructions .ROUTE 11/16/17 04/06/18 Rx .MEDSUPPLY #100 ea geriatric multivit with iron and 1 tab PO QDAY 12/13/17 09/05/18 History minerals tablet fluticasone furoate 200 1 inh INH QDAY #60 ea 05/07/18 09/05/18 Rx mcg-vilanterol 25 mcg/dose inhalation powder glipizide 10 mg tablet 10 mg PO BID #60 tab 06/06/18 09/05/18 Rx metformin 1,000 mg tablet 1,000 mg PO BID #60 tab 06/25/18 09/05/18 Rx albuterol sulfate HFA 90 1 puff INH Q4-6H PRN #8.5 g 07/13/18 09/05/18 Rx mcg/actuation aerosol inhaler sitagliptin 50 mg tablet 50 mg PO QDAY #30 tab 07/19/18 09/05/18 Rx Atorvastatin Calcium [Lipitor] 20 mg PO BEDTIME 09/05/18 09/05/18 History Apixaban [Eliquis] 10 mg PO BID #72 tab 09/09/18 Rx Follow-up with PCP in 1-2 weeks Condition at discharge was stable for discharge Exam - Vitals Vital Signs: Vital Signs Temperature 97.9 F Temperature Source Oral Pulse Rate [Bilateral Dorsalis 59 Pedis] Pulse Rate [Apical] 84 Pulse Rate [Pulse Oximeter 54 Right] Pulse Rate [left finger] 56 Pulse Rate 59 Respiratory Rate 16 Blood Pressure [Left Arm] 129/58 Blood Pressure [Right Arm] 126/76 Blood Pressure 126/84 Pulse Ox [left finger] 96 Pulse Ox 97 Oxygen Flow Rate [left finger] 2.5 Oxygen Flow Rate 2.5 Oxygen Delivery Method [left Nasal Cannula finger] Oxygen Delivery Method Nasal Cannula Height 6 ft Weight 242 lb 9.6 oz - General General Appearance: No Acute Distress, Cooperative - Head Head Exam: Normal Inspection - Eye Eye Exam: POSITIVE: Normal Appearance - ENT ENT Exam: POSITIVE: Normal Exam - Neck Neck Exam: Normal Inspection - Respiratory Respiratory Exam: POSITIVE: Clear to Auscultation - Bilaterally - Cardiovascular Cardiovascular Exam: POSITIVE: RRR - GI/Abdominal GI/Abdominal Exam: POSITIVE: Normal Bowel Sounds, Non Tender, Non Distended, Soft, No Organomegaly - Rectal Rectal Exam: POSITIVE: Deferred - External Exam: POSITIVE: Deferred - Extremities Additional Extremities Exam Details: Minimal edema in the right leg - Back Back Exam: POSITIVE: Normal Inspection - Neurological Neurological Exam: POSITIVE: Alert, Oriented x 3, CN II-XII Intact, No Facial Droop, Speech Intact / Clear, Moves All Extremities Equally - Psychiatric Psychiatric Exam: POSITIVE: Normal Affect - Integumentary Integumentary Exam: POSITIVE: Normal Color Patient Problems - Patient Problem List (1) Pulmonary embolism Current Visit: Yes Status: Acute Code(s): I26.99 - Other pulmonary embolism without acute cor pulmonale Category: Medical (2) Diabetes Current Visit: No Status: Chronic Code(s): E11.9 - Type 2 diabetes mellitus without complications Qualifiers: Category: Medical (3) DVT (deep venous thrombosis) Current Visit: Yes Status: Acute Code(s): I82.409 - Acute embolism and thrombosis of unspecified deep veins of unspecified lower extremity Category: Medical
[2018-09-09 09:30] VITALS: O2SAT 93
[2018-09-09] MEDS: FLUTICASONE INH SCH (09:50)
[2018-09-09] MEDS: VILANTEROL INH SCH (09:50)
[2018-09-09] MEDS: Apixaban 5 MG TABLET PO SCH (09:50)
[2018-09-11 15:26] LABS: FACTOR V MUTATION ANALYSIS Negative (Negative)
== END 2018-09-09 10:44 | disposition home or self-care (01) | DRG 176 ==
LOC: ER 14:23 → MED/SURG 18:36 → UNDODISIN 09-09 10:44
PROVIDERS: ADMIT Internal Medicine; ATTEND Internal Medicine